=== PATIENT | female | born 1995 | race Caucasian/White ===

== ENCOUNTER 2017-09-07 09:30 | Inpatient (IN) | payer OTHER, SELFPAY ==
[~2017-09-07 09:30] MED LIST: Ringers Lactate 1,000 ML IV PRN
[2017-09-07] MEDS ORDERED: Ringers Lactate 1,000 ML IV SCH (10:00)
[2017-09-07] MEDS ORDERED: miSOPROStol 100 MCG TAB PO ONE (10:00)
--- OUTSIDE RECORDS SUMMARY | 2017-09-07 10:44 | XMS REPORT ---
:1995 Author Organization [employer] Care Team Providers Name Role Phone Lolita Benavides Provider Role Unavailable Allergies No Known Allergies Problems Problem Type Condition Code Onset Dates Condition Status Problem Unsure of LMP (last menstrual Z36.87 Active period) as reason for ultrasound scan Problem Normal in third trimester Z34.93 Active Assessment Normal in third trimester Z34.93 Active Medications No Known Medications Results No Known Results Summary Purpose [employer] Submission
--- OUTSIDE RECORDS SUMMARY | 2017-09-07 10:44 | XMS REPORT ---
:1995 Author Organization [employer] Care Team Providers Name Role Phone Lolita Benavides Provider Role Unavailable Allergies No Known Allergies Problems Problem Type Condition Code Onset Dates Condition Status Problem Unsure of LMP (last menstrual Z36.87 Active period) as reason for ultrasound scan Assessment Normal in third trimester Z34.93 Active Problem Normal in third trimester Z34.93 Active Assessment Unsure of LMP (last menstrual Z36.87 Active period) as reason for ultrasound scan Medications No Known Medications Results No Known Results Summary Purpose [employer] Submission
--- OUTSIDE RECORDS SUMMARY | 2017-09-07 10:44 | XMS REPORT ---
:1995 Author Organization [employer] Care Team Providers Name Role Phone Lolita Benavides Provider Role Unavailable Allergies No Known Allergies Problems Problem Type Condition Code Onset Dates Condition Status Problem Unsure of LMP (last menstrual Z36.87 Active period) as reason for ultrasound scan Assessment Normal in third trimester Z34.93 Active Problem Normal in third trimester Z34.93 Active Medications No Known Medications Results No Known Results Summary Purpose [employer] Submission
--- OUTSIDE RECORDS SUMMARY | 2017-09-07 10:44 | XMS REPORT ---
:1995 Author Organization [employer] Care Team Providers Name Role Phone Lolita Benavides Provider Role Unavailable Allergies No Known Allergies Problems Problem Type Condition Code Onset Dates Condition Status Problem Unsure of LMP (last menstrual Z36.87 Active period) as reason for ultrasound scan Assessment Normal in multigravida in Z34.82 Active second trimester Problem Normal in multigravida in Z34.82 Active second trimester Assessment Urinary tract infection in mother O23.42 Active during second trimester of Medications Medication Code System Code Instructions Start End Date Status Dosage Date Macrobid [facility] [place] [id number] 100 MG Orally June 18June 25, Active 1 capsule every 12 hrs 2017 2017 with food Results No Known Results Summary Purpose [employer]Works Submission
--- OUTSIDE RECORDS SUMMARY | 2017-09-07 10:44 | XMS REPORT ---
[...] multigravida in Z34.82 Active second trimester Assessment Unsure of LMP (last menstrual Z36.87 Active period) as reason for ultrasound scan Medications No Known Medications Results No Known Results Summary Purpose [employer]Works Submission
[2017-09-07 12:11] LABS: RPR Titer ND
[2017-09-07 12:13] LABS: Absolute Lymphocytes (CBC) 1.2 K/uL (0.7-4.9); Absolute Monocytes 0.8 K/uL (0.1-1.3); Absolute Neutrophil 7.6 K/uL (1.8-8.0); Basophils % 0.1 % (0-1.3); Eosinophils % 0.2 % (0-4.4); Hematocrit 32.9 % (36.0-45.0); MCH 31.9 pg (27.0-35.0); MCV 94.4 fL (80-100); MPV 11.6 fL (7.6-11.3); Monocytes % 8.5 % (3.3-12.3); RBC Red Blood Cell Count 3.49 M/uL (3.86-4.86)
[2017-09-07 12:28] LABS: Urine Appearance CLEAR; Urine Bilirubin NEGATIVE (NEG); Urine Blood NEGATIVE (NEG); Urine Color YELLOW; Urine Glucose NEGATIVE (NEG); Urine Protein NEGATIVE (NEG); Urine Specific Gravity 1.015 (1.005-1.030)
[2017-09-07 12:37] LABS: Urine Microscopic Reflex NO UMIC
[2017-09-07] MEDS ORDERED: DIPHENHYDRAMINE 50 MG/ML VIAL IV PRN (13:31)
[2017-09-07] MEDS ORDERED: miSOPROStol 100 MCG TAB VAG SCH (13:31)
[2017-09-07] MEDS ORDERED: METOCLOPRAMIDE 10 MG/2mL INJ IV PRN (13:31)
[2017-09-07] MEDS ORDERED: ONDANSETRON 4 MG/2 ML VIAL IV PRN (13:31)
--- NOTE | 2017-09-07 17:17 | P.HP ---
Certification for Inpatient Patient admitted to: Inpatient With expected LOS: >2 Midnights Patient will require the following post-hospital care: None Practitioner: I am a practitioner with admitting privileges, knowledge of patient current condition, hospital course, and medical plan of care. Services: Services provided to patient in accordance with Admission requirements found in Title 42 Section 412.3 of the Code of Federal Regulations Patient History Date of Service: 09/07/17 Reason for admission: Elective induction of labor History of Present Illness: 22-year-old at 39 weeks and 2 days admitted for an elective induction of labor. was complicated by a unsure last menstrual period, mild anemia, and thrombocytopenia. She has otherwise had routine care and has been compliant. No high risk issues identified. SANTOSH: 09/12/17. GBS negative. Allergies No Known Allergies Allergy (Unverified 09/07/17 09:14) - Past Medical/Surgical History Past Medical History: Patient denies medical history Past Surgical History: Patient denies surgical history - Social History Smoking Status: Never smoker Alcohol use: No CD- Drugs: No Caffeine use: No Place of Residence: Home Review of Systems 10-point ROS is otherwise unremarkable Physical Examination - Physical Exam General: Alert, In no apparent distress, Oriented x3 Respiratory: Other (Normal effort) Cardiovascular: Normal pulses, Other Musculoskeletal: Swelling (B/L ankle edema: 1+) Integumentary: No rashes, No breakdown Neurological: Normal speech, Normal strength at 5/5 x4 extr - Studies Laboratory Data (last 24 hrs) 09/07/17 11:50: WBC 9.6, Hgb 11.1 L, Hct 32.9 L, Plt Count 110 L Female Exam - Female Pelvic Cervix: Dilation (1), Effacement (Thick), station (High) Uterus: Non-tender, Soft, Gravid - Obstetrics heart rate tracing: Category 1 Contractions: Frequency (Irregular) Amniotic membrane: Intact Assessment and Plan - Problems (Diagnosis) (1) Term Current Visit: Yes Status: Acute Plan: Admit to L&D for cervical ripening with the Cytotec. Initial dose given orally and subsequent doses to be given vaginally, for total of 3 doses. If cervix is favorable, may start pitocin. Otherwise, will need additional ripening. Patient maybe up to ambulate given heart rate tracing/NST is reassuring during ripening process. She plans on getting an epidural for pain control. - Advance Directives Does patient have a Living Will: No Does patient have a Durable POA for Healthcare: No
[2017-09-07] MEDS ORDERED: ACETAMINOPHEN 500 MG TAB PO PRN (17:20)
[2017-09-07 17:38] VITALS: BMI 34.7
[2017-09-07] MEDS ORDERED: BUTORPHANOL 1 MG/ML INJ IV PRN (19:27)
[2017-09-07 21:02] LABS: RPR (Rapid Plasma Reagin) NON-REACT (NON-REACT)
--- NOTE | 2017-09-07 23:24 | P.PN ---
Date of Service: 09/07/17 Pt seen and examined. Discussed AROM, pt agreed. Procedure done without incident; scant amount of clear fluid noted. Cervix: 4/50/-1 [place]: q 2 min A/p: 22 y.o. at 39w2d admitted for eIOL. MF status is overall reassuring. - S/p AROM. Start pitocin if contractions space out. - Epidural per patient request
[2017-09-07] MEDS ORDERED: ROPIVACAINE HCL 20 ML ONE (23:29)
[2017-09-07] MEDS ORDERED: ROPIVACAINE HCL 100 ML IV ONE (23:30)
[2017-09-07] MEDS ORDERED: FENTANYL CITR 100 MCG/2 ML IV ONE (23:35)
[2017-09-07] MEDS ORDERED: ROPIVACAINE HCL 100 ML IV PRN (23:35)
[2017-09-07] MEDS ORDERED: ROPIVACAINE HCL 0.2% 20ML AMP IV ONE (23:36)
--- NOTE | 2017-09-08 00:26 | P.PN ---
Date of Service: 09/08/17 Pt re-examined: 100/0 station. Pain is improved with epidural. FHR: 110, mod tayo, variable decel/early decel noted, spontaneous resolution [place]: q 3-4 min Keep on continuous monitoring. O2 placed and patient repositioned to left side. Give IVF bolus.
[2017-09-08] MEDS ORDERED: CARBOPROST TROME 250 MCG/ML IM ONE (00:36)
[2017-09-08] MEDS ORDERED: METHYLERGONOVINE 0.2MG/ML AMP IM ONE (00:36)
[2017-09-08] MEDS ORDERED: OXYTOCIN/LR 20 UNIT/1,000 ML BAG IV ONE (00:36)
[2017-09-08] MEDS ORDERED: LIDOCAINE 2% W/EPI 1:200,000 MPF 20 ML VIAL IM ONE (00:37)
--- NOTE | 2017-09-08 00:40 | P.PN ---
Date of Service: 09/08/17 Pt is now 9-10 and starting to feel pressure. Allow to labor down. Start 2nd stage when she feels the urge to push. FHR: cat II due to variables [place]: q 2 min MF status is overall reassuring. Anticipate
[2017-09-08] MEDS ORDERED: METOCLOPRAMIDE 5 MG TAB PO PRN (02:31)
[2017-09-08] MEDS ORDERED: ZOLPIDEM TARTRATE 5 MG TABLET PO PRN (02:31)
[2017-09-08] MEDS ORDERED: BISACODYL 10 MG RECTAL SUPP RECT PRN (02:31)
[2017-09-08] MEDS ORDERED: DOCUSATE NA/SENNA CONC 1 TAB PO PRN (02:31)
[2017-09-08] MEDS ORDERED: CODEINE 30MG/APAP 300MG TAB PO PRN (02:31)
[2017-09-08] MEDS ORDERED: DIPHENHYDRAMINE 25 MG TAB/CAP PO PRN (02:31)
[2017-09-08] MEDS ORDERED: ONDANSETRON 4 MG (ODT) TAB PO PRN (02:34)
--- NOTE | 2017-09-08 02:35 | P.OP ---
Preoperative diagnosis: Term , Eletive induction of labor Postoperative diagnosis: Same Primary procedure: Anesthesia: Epidural Estimated blood loss: 400 cc Specimen: None Findings: See operative report Operative Technique: FINDINGS: [place] female fetus in AZAEL presentation, APGARS of 8/9; weight of 7 # 5 oz; clear amniotic fluid, normal appearing placenta; right vaginal side wall laceration HISTORY OF PRESENT ILLNESS: The patient is a 22-year-old female who is a at 39w2d admitted for an elective IOL. Her labs showed Rh+ status with negative antibody screen, VDRL non-reactive, hepatitis B surface antigen negative, HIV non-reactive and rubella immune status. She presented to Labor and Delivery for a scheduled induction. She noted positive movement and denied any other complaints. On exam, she was noted to be 1 cm dilated. PROCEDURE DETAILS: The patient was admitted to Labor and Delivery for cervical ripening, which was done with cytotec. After 2 doses, she started to experience painful contractions. She did not want and epidural and AROM was discussed. Clear fluid was noted. Contractions intensified and she asked for an epidural for pain control. It was placed with good result. Her labor continued to progress normally. She had a spontaneous vaginal delivery of a live born female at 01:44 with clear fluid from an OA position over an intact perineum. After controlled delivery of the head, a loose nuchal cord was noted, which was easily reduced. With the next push, the shoulders and body delivered without difficulty. The was placed on the patient's abdomen for skin to skin contact. Weight was 7 lb 5 oz. The Apgars were 8 at 1 minute and 9 at 5 minutes, respectively. There was no depression. was crying, pink, vigorous, and moving all extremities. Spontaneous delivery of an intact placenta with a three-vessel cord was noted at 01:50. On examination, there was a right vaginal side wall laceration. 2-0 vicryl was used to repair it in the usual sterile fashion. On vaginal exam, there were no noted cervical or other vaginal sidewall lacerations. Estimated blood loss was 400 cc. Mother and infant are in recovery doing well at this time. Complications: None Fluids & blood products: mIVF Transferred to: Recovery Room Condition: Good
[2017-09-08] MEDS ORDERED: NA CHLORIDE 0.9% 1,000 ML IV SCH (03:00)
[2017-09-08] MEDS ORDERED: Ringers Lactate 1,000 ML IV ONE (03:07)
[2017-09-08 04:32] LABS: Absolute Lymphocytes (CBC) 0.7 K/uL (0.7-4.9); Absolute Monocytes 0.7 K/uL (0.1-1.3); Absolute Neutrophil 12.4 K/uL (1.8-8.0); Basophils % 0.2 % (0-1.3); Hematocrit 32.1 % (36.0-45.0); MCV 93.3 fL (80-100); MPV 11.7 fL (7.6-11.3); Monocytes % 4.7 % (3.3-12.3); RBC Red Blood Cell Count 3.44 M/uL (3.86-4.86)
[2017-09-08 05:35] LABS: Blood Morphology Comment NOT SEEN (NOT SEEN); Platelet Estimate ADEQ
[2017-09-08] MEDS: IBUPROFEN 200 MG TAB PO PRN ×2 (09:27→22:19)
--- NOTE | 2017-09-08 12:43 | P.DS ---
Admission Date: 09/07/17 Discharge Date: 09/08/17 Disposition: ROUTINE DISCHARGE Comment: Rounding with d/c summary Discharge Condition: GOOD Reason for Admission: Elective induction of labor - Problems (1) Term Onset Date: 09/08/17 Current Visit: Yes Status: Acute (2) Vaginal delivery Onset Date: 09/08/17 Current Visit: Yes Status: Acute Brief History of Present Illness: 22-year-old at 39 weeks and 2 days admitted for an elective induction of labor. was complicated by a unsure last menstrual period, mild anemia, and thrombocytopenia. She has otherwise had routine care and has been compliant. No high risk issues identified. SANTOSH: 09/12/17. GBS negative. Hospital Course: Pt was admitted for an elective induction of labor. It was started with cytotec for cervical ripening and patient went into labor after 2 doses. She opted for an epidural for pain control, and it was placed with good result. Labor progressed normally and she had a normal spontaneous delivery of healthy baby girl. Her pp course has been uncomplicated and she is . Bleeding is described a light menses and she is meeting d/c home criteria. Plan to discharge on PPD #1. Vital Signs/Physical Exam: Temp Pulse Resp BP Pulse Ox 98.1 F 83 16 120/50 L 99 09/08/17 11:30 09/08/17 11:30 09/08/17 11:30 09/08/17 11:30 09/08/17 07:45 General: Alert, In no apparent distress, Oriented x3 Respiratory: Other (Normal effort) Cardiovascular: Normal pulses Musculoskeletal: No erythema, No tenderness, Swelling (Trace pedal edema) Integumentary: No rashes, No breakdown Neurological: Normal speech, Normal strength at 5/5 x4 extr Laboratory Data at Discharge: WBC 13.8 K/uL (4.3-10.9) H D 09/08/17 04:08 Hgb 11.0 g/dL (12.0-15.0) L 09/08/17 04:08 Hct 32.1 % (36.0-45.0) L 09/08/17 04:08 Plt Count 95 K/uL (152-406) L* 09/08/17 04:08 Home Medications: Ibuprofen 800 mg PO Q8H PRN #30 tablet 09/08/17 Vitamin [ VITAMIN*] 1 tab PO DAILY 09/08/17 New Medications: Ibuprofen 800 mg PO Q8H PRN #30 tablet PRN Reason: Abdominal Cramps Patient Discharge Instructions: Complete pelvic rest for 6 weeks. Notify doctor of heavy bleeding, uncontrolled pain, fever/chills, or other signs of infection. See doctor in 6 weeks for exam Diet: Regular Activity: Ad rosa Followup: Lolita Benavides MD [ACTIVE - CAN ADMIT] -
[2017-09-09 08:05] VITALS: BP 120/67; TEMP 97.4
[2017-09-10 02:56] LABS: HBsAG Nonreactive (Nonreactive)
== END 2017-09-09 08:55 | disposition home or self-care (01) | DRG 775 ==
LOC: 2ND-WC 10:42
PROVIDERS: ADMIT Obstetrics & Gynecology; ATTEND Obstetrics & Gynecology
PROC: 3E0P7VZ Introduction of Hormone into Female Reproductive, Via Natural or Artificial Opening (ICD-10-PCS; 2017-09-07)
PROC: 10907ZC Drainage of Amniotic Fluid, Therapeutic from Products of Conception, Via Natural or Artificial Opening (ICD-10-PCS; 2017-09-07)
PROC: 10E0XZZ Delivery of Products of Conception, External Approach (ICD-10-PCS; principal; 2017-09-08)
PROC: 0UQG0ZZ Repair Vagina, Open Approach (ICD-10-PCS; 2017-09-08)
DX: O71.4 Obstetric high vaginal laceration alone (principal); O99.12 Other diseases of the blood and blood-forming organs and certain disorders involving the immune mechanism complicating childbirth; O69.81X0 Labor and delivery complicated by cord around neck, without compression, not applicable or unspecified; Z3A.39 39 weeks gestation of pregnancy; Z37.0 Single live birth; O99.02 Anemia complicating childbirth; D69.6 Thrombocytopenia, unspecified
CPT/HCPCS: 36415; 81003; 85025; 86592; 86901; 87340; J2210; J2590; J2795; J3010